=== PATIENT | female | born 1950 | race Caucasian/White ===

== ENCOUNTER 2018-08-01 08:30 | Emergency (ER) | payer OTHER, SELFPAY ==
--- NOTE | 2018-08-01 08:33 | W.ED.GENAD ---
Discharge Plan Disposition Patient Disposition: HOME Condition: Fair Discharge Details Chief Complaint: Nk/Back Pain Clinical Impression: Sciatica Primary Care Provider: Unknown,Unknown ED Provider: Janna Dimas Home Meds and New Rx's Prescriptions: New prednisone 10 mg tablet 10 mg PO DAILY Qty: 30 RF: 0 Continued loratadine [Claritin] 10 mg Tablet 10 mg PO DAILY PRNRF: 0 Discharge Instructions Instructions: Sciatica (ED) Additional Instructions: Encourage hydration. Encourage gentle stretching and frequent ambulation. Please take steroids as prescribed. Please begin naproxen twice daily for the next week. You may augment this with Tylenol as needed for pain. You may try [id number] patches such as Salonpas or Lidoderm patches. Continue with TENS unit as discussed. Please call physical therapy office to schedule appointment, referral is attached. cash management coordinator will contact you with primary care. If you develop fevers/chills, increased pain, altered sensation, change in bowel/bladder habits, weakness or other new/worsneing symptoms please seek care urgently once again. Stand Alone Forms: Physical Therapy Referral Medical Decision Making Patient is a 67 year old female presenting today with c/c of sciatica. States that she first started having symptoms over a month ago. Was seen by PCP who gave her a course of prednisone. States that this was helpful for her pain but that symptoms have since returned. Initially, symptoms were affecting the left side. States that 3 weeks ago she completed a 5 day steroid taper. Initially was pain free. However, symptoms began to reoccur a few days after completion of medication. Again, symptoms were on the left. Recently, however, she began having pain bilaterally. Pain can radiate, particularly with walking, down posterior aspect bilateral legs into min feet. No trauma. No recent illness, denes fevers/chills. No change in urinary or bowel function. Exam is reassuring. She has pain over the SI joints. Neuro exam is intact. No saddle paresthesias. Negative straight leg test. No midline tenderness. Exam and history concistent with sciatica. Patient discussed multitude of options for treatment. She is decided on a short course of prednisone, anti-inflammatory and physical therapy. She reports her primary care has closed down and we will work on having her establish locally. She is given strict return precautions. We discussed activities that she may do at home to help with discomfort. All the questions and concerns were addressed and she is in agreement this plan HPI General Mode of arrival: ambulatory. Date/Time Provider Initiated Documentation: 08/01/18 08:33. Limitations to Documentation: no limitations. Information obtained by: patient, family (brought in by daughter) and RN notes reviewed. History of Present Illness 67 year old F presents to the emergency department with the chief complaint of sciatica, described as moderate, Quality is described as burning, and is localized to the left, right and lower extremity. Patient extremity (BLE). Patient started experiencing this month(s) and it has been constant. Movement improves symptom(s), (reports worse at the end of the day after activity) Immoblization worsens symptoms . Patient notes denies chest pain, cough, fever/chills, headaches, nausea/vomiting, rash, shortness of breath and weakness. Patient did receive the following treatments prior to arrival, other (prednisone) Related Data Home Medications Medication Instructions Recorded Confirmed loratadine [Claritin] 10 mg PO DAILY PRN 08/01/18 08/01/18 prednisone 10 mg PO DAILY #30 tab 08/01/18 Previous Rx's Medication Instructions Recorded prednisone 10 mg PO DAILY #30 tab 08/01/18 Allergies Allergy/AdvReac Type Severity Reaction Status Date / Time No Known Allergies Allergy Unverified 08/01/18 08:40 Review of Systems Constitutional Reports as per HPI, Denies chills, Denies fever(s), Denies headache(s) and Denies weakness ENT Denies headache(s) Cardiovascular Reports as per HPI Respiratory Reports as per HPI and Denies cough Musculoskeletal Reports as per HPI, Reports abnormal gait (reports she develops antalgic gait as pain increases throughout the day), Reports numbness (medial right foot, lateral left ankle) and Denies tingling Integumentary/Breasts Reports as per HPI, Denies rash and Denies wounds Neurologic Reports as per HPI, Reports abnormal gait (reports she develops antalgic gait as pain increases throughout the day), Denies headache(s), Denies focal weakness, Reports numbness (medial right foot, lateral left ankle), Reports radicular pain, Denies tingling, Denies paresthesias and Denies weakness [facility] Social History Smoking/Tobacco Use Status: Current-Occasional Alcohol Intake: current Alcohol Intake frequency: 0-2 drinks per day Drug use: Occasionally Substance use type: marijuana Do you feel safe at home: Yes Do you feel safe in your relationship?: Yes Exam Const General: cooperative, healthy appearing, comfortable, no acute distress, well developed and well groomed Nutritional Appearance: average body habitus and well nourished Orientation: alert and awake Resp Effort & Inspection: normal respiratory effort, able to speak in complete sentences and no respiratory distress Auscultation: clear to auscultation bilaterally, no rales, no rhonchi and no wheezes Cardio Rate: regular rate Rhythm: regular rhythm Heart Sounds: S1 normal and S2 normal Back/Spine/Pelvis Cervical Spine: normal cervical lordosis, cervical ROM normal, No cervical muscular tenderness, No cervical spinal tenderness and No step off deformity Thoracic/Lumbar Spine: thoracic and lumbar spine normal to inspection, thoraco-lumbar ROM normal, straight leg raise negative bilaterally, No paraspinal tenderness, No thoraco-lumbar ROM limited, No thoracic spinal tenderness, No lumbar spinal tenderness and No straight leg raise positive Sacroiliac joints: bilaterally tender to palpation Skin General skin exam: no rashes or lesions noted Lesions: no lesions Rashes: no rashes Trauma: no lacerations or abrasions Neuro General: alert and awake Cognition: normal cognition Speech: speech normal Gait: normal gait Motor: muscle tone normal throughout, strength 5/5 throughout, no movement abnormalities noted and no fasciculations Sensory Exam: no sensory deficits noted (sharp/dull testing intact) DTR's: Rt Patellar: 2+, Lt Patellar: 2+, Rt Ankle: 2+ and Lt Ankle: 2+ Plantar Reflexes: Downgoing: bilateral Extrem Right lower extremity: normal to inspection, full ROM, normal capillary refill and no joint enlargement Left lower extremity: normal to inspection, full ROM, normal capillary refill and no joint enlargement Psych Appearance: grossly normal and well kempt Mental Status: mental status grossly normal Speech and Movement: speech and movement normal
[2018-08-01 08:36] VITALS: BP 179/98; PULSE 82; RESP 18; TEMP 36.7; O2SAT 99
--- NOTE | 2018-08-01 08:43 | ED.GENADUL_ITS ---
Discharge Plan Disposition Patient Disposition: HOME Condition: Fair Discharge Details Chief Complaint: Nk/Back Pain Clinical Impression: Sciatica Primary Care Provider: Unknown,Unknown ED Provider: Janna Dimas Home Meds and New Rx's Prescriptions: New prednisone 10 mg tablet 10 mg PO DAILY Qty: 30 RF: 0 Continued loratadine [Claritin] 10 mg Tablet 10 mg PO DAILY PRNRF: 0 Discharge Instructions Instructions: Sciatica (ED) Additional Instructions: Encourage hydration. Encourage gentle stretching and frequent ambulation. Please take steroids as prescribed. Please begin naproxen twice daily for the next week. You may augment this with Tylenol as needed for pain. You may try [id number] patches such as Salonpas or Lidoderm patches. Continue with TENS unit as discussed. Please call physical therapy office to schedule appointment, referral is attached. organ recovery coordinator will contact you with primary care. If you develop fevers/chills, increased pain, altered sensation, change in bowel/bladder habits, weakness or other new/worsneing symptoms please seek care urgently once again. Stand Alone Forms: Physical Therapy Referral Medical Decision Making Patient is a 67 year old female presenting today with c/c of sciatica. States that she first started having symptoms over a month ago. Was seen by PCP who gave her a course of prednisone. States that this was helpful for her pain but that symptoms have since returned. Initially, symptoms were affecting the left side. States that 3 weeks ago she completed a 5 day steroid taper. Initially was pain free. However, symptoms began to reoccur a few days after completion of medication. Again, symptoms were on the left. Recently, however, she began having pain bilaterally. Pain can radiate, particularly with walking, down posterior aspect bilateral legs into min feet. No trauma. No recent illness, denes fevers/chills. No change in urinary or bowel function. Exam is reassuring. She has pain over the SI joints. Neuro exam is intact. No saddle paresthesias. Negative straight leg test. No midline tenderness. Exam and history concistent with sciatica. Patient discussed multitude of options for treatment. She is decided on a short course of prednisone, anti-inflammatory and physical therapy. She reports her primary care has closed down and we will work on having her establish locally. She is given strict return precautions. We discussed activities that she may do at home to help with discomfort. All the questions and concerns were addressed and she is in agreement this plan HPI General Mode of arrival: ambulatory . Date/Time Provider Initiated Documentation: 08/01/18 08:33 . Limitations to Documentation: no limitations . Information obtained by: patient, family (brought in by daughter) and RN notes reviewed . History of Present Illness 67 year old F presents to the emergency department with the chief complaint of sciatica, described as moderate, Quality is described as burning, and is localized to the left, right and lower extremity. Patient extremity (BLE). Patient started experiencing this month(s) and it has been constant. Movement improves symptom(s), (reports worse at the end of the day after activity) Immoblization worsens symptoms . Patient notes denies chest pain, cough, fever/chills, headaches, nausea/vomiting, rash, shortness of breath and weakness. Patient did receive the following treatments prior to arrival, other (prednisone) Related Data Home Medications Medication Instructions Recorded Confirmed loratadine [Claritin] 10 mg PO DAILY PRN 08/01/18 08/01/18 prednisone 10 mg PO DAILY #30 tab 08/01/18 Previous Rx's Medication Instructions Recorded prednisone 10 mg PO DAILY #30 tab 08/01/18 Allergies Allergy/AdvReac Type Severity Reaction Status Date / Time No Known Allergies Allergy Unverified 08/01/18 08:40 Review of Systems Constitutional Reports as per HPI, Denies chills, Denies fever(s), Denies headache(s) and Denies weakness ENT Denies headache(s) Cardiovascular Reports as per HPI Respiratory Reports as per HPI and Denies cough Musculoskeletal Reports as per HPI, Reports abnormal gait (reports she develops antalgic gait as pain increases throughout the day), Reports numbness (medial right foot, lat eral left ankle) and Denies tingling Integumentary/Breasts Reports as per HPI, Denies rash and Denies wounds Neurologic Reports as per HPI, Reports abnormal gait (reports she develops antalgic gait as pain increases throughout the day), Denies headache(s), Denies focal weakness, Reports numbness (medial right foot, lateral left ankle), Reports radicular pain, Denies tingling, Denies paresthesias and Denies weakness [facility], [facility] Social History Smoking/Tobacco Use Status: Current-Occasional Alcohol Intake: current Alcohol Intake frequency: 0-2 drinks per day Drug use: Occasionally Substance use type: marijuana Do you feel safe at home: Yes Do you feel safe in your relationship?: Yes Exam Const General: cooperative, healthy appearing, comfortable, no acute distress, well developed and well groomed Nutritional Appearance: average body habitus and well nourished Orientation: alert and awake Resp Effort & Inspection: normal respiratory effort, able to speak in complete sentences and no respiratory distress Auscultation: clear to auscultation bilaterally, no rales, no rhonchi and no wheezes Cardio Rate: regular rate Rhythm: regular rhythm Heart Sounds: S1 normal and S2 normal Back/Spine/Pelvis Cervical Spine: normal cervical lordosis, cervical ROM normal, No cervical muscular tenderness, No cervical spinal tenderness and No step off deformity Thoracic/Lumbar Spine: thoracic and lumbar spine normal to inspection, thoraco- lumbar ROM normal, straight leg raise negative bilaterally, No paraspinal tenderness, No thoraco-lumbar ROM limited, No thoracic spinal tenderness, No lumbar spinal tenderness and No straight leg raise positive Sacroiliac joints: bilaterally tender to palpation Skin General skin exam: no rashes or lesions noted Lesions: no lesions Rashes: no rashes Trauma: no lacerations or abrasions Neuro General: alert and awake Cognition: normal cognition Speech: speech normal Gait: normal gait Motor: muscle tone normal throughout, strength 5/5 throughout, no movement abnormalities noted and no fasciculations Sensory Exam: no sensory deficits noted (sharp/dull testing intact) DTR's: Rt Patellar: 2+, Lt Patellar: 2+, Rt Ankle: 2+ and Lt Ankle: 2+ Plantar Reflexes: Downgoing: bilateral Extrem Right lower extremity: normal to inspection, full ROM, normal capillary refill and no joint enlargement Left lower extremity: normal to inspection, full ROM, normal capillary refill and no joint enlargement Psych Appearance: grossly normal and well kempt Mental Status: mental status grossly normal Speech and Movement: speech and movement normal
[2018-08-01] MEDS: Lidocaine 5% Patch 2 PATCH TP (09:18)
--- NOTE | 2018-08-04 16:24 | PDOC.ERCMPRO ---
Care Management Progress Note Shannon referred for PCP follow up. CM faxed referral to [facility] as La was information manager, response faxed back stated Pt was called-she has PCP & did not want to book with [facility]. CM messaged provider to notify.
== END 2018-08-01 09:31 | disposition home or self-care (01) ==
LOC: ER 09:43
PROVIDERS: Emergency Provider Physician Assistant; PCP Nurse Practitioner Adult Health
DX: M54.31 Sciatica, right side (principal); M54.32 Sciatica, left side
CPT/HCPCS: 99283

== ENCOUNTER 2021-05-27 17:58 | Outpatient (REF) | payer MEDICARE, SELFPAY ==
[2021-05-29 12:13] LABS: COVID-19 RT-PCR UVMMC Result Negative (Negative)
== END 2021-05-27 17:59 | disposition home or self-care (01) ==
LOC: LBN 17:58
PROVIDERS: PCP Nurse Practitioner Adult Health; Visit Provider Physician Assistant Medical
DX: J06.9 Acute upper respiratory infection, unspecified (principal); Z20.822 Contact with and (suspected) exposure to COVID-19
CPT/HCPCS: U0003

== ENCOUNTER 2021-08-10 15:50 | Emergency (ER) | payer MEDICARE, SELFPAY ==
[2021-08-10 16:00] VITALS: BP 168/97; PULSE 89; RESP 16; TEMP 36.7; O2SAT 96
--- NOTE | 2021-08-10 16:15 | DI.US_ITS ---
Exam(s) US LOWER EXTREMITY VENOUS LT EXAM: US LOWER EXTREMITY VENOUS LT CLINICAL HISTORY: R/O DVT/ Bakers Cyst TECHNIQUE: Left lower extremity venous ultrasound performed using grayscale, color-flow, and spectra l Doppler analysis. COMPARISON: No exams were available for comparison FINDINGS: The left common femoral, femoral and popliteal veins demonstrate normal compressibility, augmentation , and color Doppler. The posterior tibial veins are patent. The saphenofemoral junction is unremarka ble. There is a 2.1 cm Alba's cyst. The soft tissues are unremarkable. IMPRESSION: 1. No DVT. 2. 2.1 cm Alba's cyst. 3. Results of this exam have been verbally communicated with provider. DATA REPOSITORY:
--- NOTE | 2021-08-10 16:15 | DI.RAD_ITS ---
Exam(s) XR KNEE LT 3V AP,LAT,CALOS EXAM: XR KNEE LT 3V AP,LAT,CALOS CLINICAL HISTORY: Left knee pain. TECHNIQUE: 2D digital imaging was performed of the left knee. Three images were obtained. AP, late ral and PA tunnel views were obtained. COMPARISON: No exams were available for comparison FINDINGS: BONES: No acute fracture is present. No bony destructive lesion is seen. JOINTS: The knee is normally aligned. No joint effusion is seen. SOFT TISSUE: Normal. IMPRESSION: Normal radiographs of the left knee. DATA REPOSITORY: RADIATION DOSE DELIVERED:
--- NOTE | 2021-08-10 16:16 | ED.GENADUL_ITS ---
Discharge Plan Disposition Patient Disposition: HOME Condition: Stable Discharge Details Clinical Impression: Synovial cyst of popliteal space [Alba], left knee Primary Care Provider: Gayle Christian ED Provider: Socorro Yan Home Meds and New Rx's Prescriptions: New tramadol 50 mg tablet 25 mg PO Q8H PRN (Reason: pain) Qty: 7 0RF Rx Instructions: Take with Food, Do not operate heavy machinery while taking this medication. No Action loratadine [Claritin] 10 mg Tablet 10 mg PO DAILY PRN prednisone 10 mg tablet 10 mg PO DAILY Qty: 30 0RF Rx Instructions: 5 tabs days 1&2 4 tabs 3&4 3 tabs 5&6 2 tabs 7&8 1 tab 9&10 sertraline 100 mg tablet 100 mg PO DAILY Label Comments: TAKE 1 TABLET BY MOUTH DAILY simvastatin 20 mg tablet 20 mg PO DAILY Discharge Instructions Instructions: Alba Cyst (ED) Additional Instructions: The knee x-ray is within normal limits at this time. You do have a 2.1 cm Alba's cyst. Wear the hinged knee brace as needed for comfort. Rest ice compression elevation. Please follow-up with orthopedics you are placed on the care management list for follow-up they should call you to make an appointment or you can call them. Please take the medication with food as directed. No operating heavy machinery or driving on this medication. Referrals: Alonso Montaño MD [ [facility] STAFF PHYSICIAN] - 2 weeks (Alba Cyst, left knee, Hinged knee brace, weight bearing as tolerated.) Discharge Data Discharge Date/Time-TO BE ENTERED AT DEPARTURE: 08/10/21 17:19 Medical Decision Making 70 year old female presents to ED with chief c/o left knee pain on and off for the last few weeks. She reports it feels as if the bone is sliding off reports popping and posterior knee pain as she is concerned about a Alba's cyst. Three-view x-ray and ultrasound Doppler rule out DVT/Alba's cyst ordered. 1641: Preliminary result obtained by US tech, 2 cm bakers Cyst noted, Negative for DVT. Patient given tramadol and a hinged knee brace discussed home care follow-up placed on the orthopedic follow-up list she verbalizes understanding. Offered crutches which she has at home. Discussed RICE procedures. This text was generated using Nuance dictation system, please disregard any oddities of phrase or misspellings. Imaging Data Radiologic Study: Imaging: Ultrasound Radiologist's impression: EXAM:? US LOWER EXTREMITY VENOUS LT CLINICAL HISTORY:? R/O DVT/ Bakers Cyst? TECHNIQUE:? Left lower extremity venous ultrasound performed using grayscale, color-flow, and spectral Doppler analysis. COMPARISON:? No exams were available for comparison FINDINGS: The left common femoral, femoral and popliteal veins demonstrate normal compre ssibility, augmentation, and color Doppler. The posterior tibial veins are patent.? The saphenofemoral junction is unremarkable.? There is a 2.1 cm Alba's cyst.? The soft tissues are unremarkable. IMPRESSION: 1. No DVT. 2. 2.1 cm Alba's cyst. 3. Results of this exam have been verbally communicated with provider. Radiologic Study #2: Imaging: X-Ray Radiologist's impression: CLINICAL HISTORY: ? Left knee pain.? TECHNIQUE:? 2D digital imaging was performed of the left knee.? Three images were obtained.? AP, lateral and PA tunnel? views were obtained. COMPARISON:? No exams were available for comparison FINDINGS: BONES:? No acute fracture is present. No bony destructive lesion is seen. JOINTS: The knee is normally aligned. No joint effusion is seen. SOFT TISSUE: Normal. IMPRESSION: Normal radiographs of the left knee. HPI General Mode of arrival: ambulatory . Date/Time Provider Initiated Documentation: 08/10/21 16:02 . Limitations to Documentation: no limitations . Information obtained by: patient, RN notes reviewed and old records reviewed . HPI Narrative: 70 year old female presents to ED with chief c/o left knee pain on and off for the last few weeks. She reports it feels as if the bone is sliding off reports popping and posterior knee pain as she is concerned about a Alba's cyst. She has been using kinesiology tape and taking naproxen with little to no relief. She reports that she is having worsening pain with ambulation increased pain with flexion and extension. Denies any known injury. No other associated symptoms. Related Data Home Medications Medication Instructions Recorded Confirmed loratadine 10 mg tablet (Claritin) 10 mg PO DAILY PRN 08/01/18 08/01/18 prednisone 10 mg tablet 10 mg PO DAILY #30 tabs 08/01/18 sertraline 100 mg tablet 100 mg PO DAILY 08/10/21 08/10/21 simvastatin 20 mg tablet 20 mg PO DAILY 08/10/21 08/10/21 tramadol 50 mg tablet 25 mg PO Q8H PRN pain #7 tabs 08/10/21 Previous Rx's Medication Instructions Recorded prednisone 10 mg tablet 10 mg PO DAILY #30 tabs 08/01/18 tramadol 50 mg tablet 25 mg PO Q8H PRN pain #7 tabs 08/10/21 Allergies Allergy/AdvReac Type Severity Reaction Status Date / Time codeine Allergy Mild Nausea Unverified 08/10/21 16:05 General Stated Complaint: Orthopedic EDGARD: 4 Review of Systems Musculoskeletal Musculoskeletal: Reports as per HPI, Reports abnormal gait, Denies back pain, Denies myalgias, Reports arthralgias, Denies joint swelling, Denies muscle weakness, Denies numbness, Reports stiffness and Denies tingling Neurologic Neurologic: Reports abnormal gait, Denies numbness and Denies tingling PFSH All Active Problems (Updated 08/10/21 @ 17:05 by Socorro Yan NP) Synovial cyst of popliteal space [Alba], left knee (Acute) Social History Smoking/Tobacco Use Status: Never Smoking risk assessment performed?: Yes Alcohol Intake: current Alcohol Intake frequency: 0-2 drinks per day Drug use: Occasionally Substance use type: marijuana Do you feel safe at home: Yes Do you feel safe in your relationship?: Yes Exam Extrem General: normal to inspection, capillary refill normal and calf tenderness Left lower extremity: knee Details: tenderness Location: of the popliteal fossa Course Vital Signs Vital signs: Vital Signs Temperature 36.7 C 08/10/21 16:00 Pulse 89 08/10/21 16:00 Respiratory Rate 16 08/10/21 16:00 Blood Pressure 168/97 H 08/10/21 16:00 Pulse Oximetry 96 08/10/21 16:00 Temperature 36.7 C 08/10/21 16:00 Pulse 89 08/10/21 16:00 Respiratory Rate 16 08/10/21 16:00 Respiratory Effort 08/10/21 16:06 Blood Pressure 168/97 H 08/10/21 16:00 Pulse Oximetry 96 08/10/21 16:00 Pain Level 10 08/10/21 16:00
[2021-08-10] MEDS: traMADol 50 MG TAB 25 MG PO (17:07)
[2021-08-10 17:12] VITALS: BP 132/72; PULSE 65; RESP 16; O2SAT 99
== END 2021-08-10 17:19 | disposition home or self-care (01) ==
PROVIDERS: Emergency Provider Registered Nurse Emergency; PCP Nurse Practitioner Adult Health
DX: M71.22 Synovial cyst of popliteal space [Baker], left knee (principal)
CPT/HCPCS: 73562; 99284; 93971; 99283

== ENCOUNTER → 2021-08-28 13:30 | Outpatient (BNVA) | payer MEDICARE, SELFPAY | PROVIDERS: PCP Nurse Practitioner Adult Health; Referring Provider Nurse Practitioner Adult Health; Visit Provider Student in an Organized Health Care Education/Training Program | DX: M71.22 Synovial cyst of popliteal space [Baker], left knee (principal) | CPT/HCPCS: 20610; 99214; J1040 ==

== ENCOUNTER 2021-10-09 12:07 | Emergency (ER) | payer MEDICARE, SELFPAY ==
[2021-10-09 12:16] VITALS: BP 176/96; PULSE 62; RESP 16; TEMP 37; O2SAT 99
[2021-10-09 12:34] VITALS: RESP 16
--- NOTE | 2021-10-09 14:09 | NUR.NOTE ---
Nursing Note: Patient stated to Access that she had been here for 2 hours, not seen and was leaving and left @ 1407.
== END 2021-10-09 14:07 | disposition left before discharge ==
PROVIDERS: PCP Nurse Practitioner Adult Health
DX: Z53.21 Procedure and treatment not carried out due to patient leaving prior to being seen by health care provider (principal)

== ENCOUNTER → 2023-01-17 08:12 | Outpatient (BNVA) | payer MEDICARE, SELFPAY | PROVIDERS: PCP Nurse Practitioner Adult Health; Referring Provider Nurse Practitioner Adult Health; Visit Provider Physical Therapy Assistant | DX: Z12.11 Encounter for screening for malignant neoplasm of colon (principal) ==

== ENCOUNTER 2023-01-28 08:18 | Day surgery (SDC) | payer MEDICARE, SELFPAY ==
[2023-01-28 08:30] VITALS: BP 124/91; PULSE 64; RESP 16; TEMP 36.3; O2SAT 97
--- NOTE | 2023-01-28 08:47 | COLE_ITS ---
Date of service: 01/28/23 Time of Service: 08:47 Colonoscopy Report Procedure Description: PROCEDURES PERFORMED: 1. Colonoscopy PREOPERATIVE DIAGNOSIS: Screening colonoscopy POSTOPERATIVE DIAGNOSIS: SURGEON: Dez Soliman MD INDICATION for procedure: The patient is a 72-year-old woman due for her first screening colonoscopy. No family history of colon cancer. No symptoms. FINDINGS: No polyps. No inflammation anywhere. Moderate sigmoid diverticulosis but no active diverticulitis and no stricture or fibrosis noted. No significant hemorrhoidal disease. SURVEILLANCE interval/FOLLOW-UP: 10 years SPECIMENS: None EBL: Minimal COMPLICATIONS: None QUALITY of prep: Excellent Procedure in detail: The patient gave written consent and was in agreement with the indications, the potential risks as well as the benefits of the procedure. We went to the endoscopy suite and the patient was laid in the left lateral decubitus position. A timeout was performed and anesthesia was administered which was tolerated well. I started the procedure. Digital rectal and visual examination was performed and grossly within normal limits. A well-lubricated flexible colonoscope was then introduced and passed without any notable difficulty all the way to the cecum identified by the ileocecal valve and the appendiceal orifice. The scope was then slowly withdrawn with the above-noted findings. The patient tolerated the procedure well and was taken to the PACU in h emodynamically stable condition.
[2023-01-28] MEDS: Lactated Ringers 1,000 ML 80 ML IV (08:58)
--- NOTE | 2023-01-28 09:37 | W.ANESPRE ---
General Info Date of Service Date Performed: 01/28/23 Height: 4 ft 11.5 in Weight: 45.359 kg Body Mass Index (BMI): 19.8 Surgical Procedure: Operation Date: 01/28/23 09:50 Proposed Procedure Side Surgeon p Colonoscopy Renan Soliman MD Actual Procedure Side Surgeon p Colonoscopy Not Applicable Renan Soliman MD Meds Allergies and Home Medications Allergies Allergy/AdvReac Type Severity Reaction Status Date / Time codeine Allergy Mild Nausea Unverified 01/28/23 08:40 Home Medication Medication Instructions Recorded loratadine 10 mg tablet (Claritin) 10 mg PO DAILY PRN 08/01/18 sertraline 100 mg tablet 100 mg PO DAILY 08/10/21 simvastatin 20 mg tablet 20 mg PO DAILY 08/10/21 tramadol 50 mg tablet 25 mg (1/2 x 50 mg) PO Q8H PRN 08/10/21 pain #7 tabs ascorbic acid (vitamin C) 1,000 mg 1 g PO DAILY 12/20/22 capsule cholecalciferol (vitamin D3) 50 50 mcg PO DAILY 12/20/22 mcg (2,000 unit) capsule methylphenidate HCl 20 mg tablet 20 mg PO BID 12/20/22 (Ritalin) sumatriptan succinate 6 mg/0.5 mL 6 mg subcut Q1-4H PRN 12/20/22 subcutaneous cartridge (refill) bisacodyl 5 mg tablet,delayed 5 mg PO ONCE #4 tabs 01/17/23 release (Dulcolax (bisacodyl)) polyethylene glycol 3350 17 17 g PO ONCE #238 grams 01/17/23 gram/dose oral powder Current Visit Medications: Current Medications Generic Name Dose Route Start Last Admin Trade Name Freq PRN Reason Stop Dose Admin Ringer's Solution 1,000 mls @ 80 mls/hr 01/28/23 06:00 01/28/23 08:58 IV 02/24/23 23:59 80 mls/hr INFUSION JEIMY Administration IV Miscellaneous Supplies 1 each 01/28/23 06:00 Iv Access IV 02/24/23 23:59 DIRECTED JEIMY Sodium Chloride 0 ml 01/28/23 06:00 Normal Saline Flush 10 Ml Syr IV 02/24/23 23:59 PRN PRN Sodium Chloride 0 ml 01/28/23 06:00 Normal Saline 10 Ml Vial IJ 02/24/23 23:59 DIRECTED PRN Sterile Water 0 ml 01/28/23 06:00 Water,Injection,Sterile 10 Ml Vial IJ 02/24/23 23:59 DIRECTED PRN PFSH Active Problems Active Problems: Problem Status Onset Code Hypertension I10 ADHD F90.9 Medical History Medical History Hx of cyst of breast Depression Surgical History Surgical History History of tubal ligation History of tonsillectomy History of adenoidectomy Tobacco Smoking/Tobacco Use Status: Never Alcohol Alcohol Intake: current Alcohol intake frequency: 0-2 drinks per day Alcohol type: hard liquor Substance Use Substance use: Occasionally Substance use type: marijuana Details: Edibles Vital Signs and Lab Results Vital Signs Most Recent Vital Signs in EMR: Most Recent Vital Signs Temp Pulse Resp BP Pulse Ox 36.3 C L 64 16 124/91 H 97 01/28/23 08:30 01/28/23 08:30 01/28/23 08:30 01/28/23 08:30 01/28/23 08:30 Lab Results Blood Type / Crossmatch: No Data to Display Complete Blood Count: No Data to Display Complete Metabolic Panel: No Data to Display Liver Function Panel: No Data to Display Coagulation Panel: No Data to Display Cardiac Panel: No Data to Display Arterial Blood Gas: No Data to Display Venous Blood Gas: No Data to Display Pancreas Panel: No Data to Display Thyroid Panel: No Data to Display Infectious Disease: No Data to Display Blood Cultures: No Data to Display Toxicology Panel: No Data to Display Anesthesia Assessment and Plan Anesthesia History Personal History: No History of Anesthesia Complications Family History: No Family History of Anesthesia Complications Exercise Tolerance Exercise Tolerance: Metabolic Equivalents>4 Pertinent Negatives Pertinent Negatives: No Symptoms of GERD Cardiac & Pulmonary Exam Cardiac Exam: Normal S1/S2 Heart Sounds Pulmonary Exam: Clear Bilateral Breath Sounds Implantable Cardiac Device Does patient have a Pacemaker or an ICD?: No Airway Exam Known Difficult Airway: No Mallampati Class: 1 Mouth Opening: Normal (> 3cm) Thyromental Distance: Greater than 3 cm Neck Range of Motion: Full ROM Neck Circumference: Normal Teeth Condition: Normal Dentition ASA Classification ASA Score: ASA 2 Emergency Case?: No NPO Status NPO Status: NPO Clears >2 hours, Solids >8 hours Anesthesia Plan Resuscitation Status: Full Code Anesthesia Technique: General Anesthesia Airway Planned: Natural Airway Monitors Used: Standard Monitors
[2023-01-28 09:38] VITALS: BMI 19.8
[2023-01-28 10:10] VITALS: BP 110/71; PULSE 62; RESP 16; TEMP 36.2; O2SAT 96
--- NOTE | 2023-01-28 10:17 | W.PM.DSUDISC ---
Date of service: 01/28/23 Time of Service: 10:17 Discharge Plan Disposition Patient Disposition: Home Condition: Good Discharge Details Attending Provider: Renan Soliman Primary Care Provider: Gayle hCristian Home Meds and New Rx's Prescriptions: No Action bisacodyl [Dulcolax (bisacodyl)] 5 mg tablet,delayed release (DR/EC) 5 mg PO ONCE Qty: 4 0RF Rx Instructions: Take per colonoscopy instructions provided by ordering providers office polyethylene glycol 3350 17 gram/dose powder 17 g PO ONCE Qty: 238 0RF Rx Instructions: Take per colonoscopy instructions provided by ordering providers office ascorbic acid (vitamin C) 1,000 mg capsule 1 g PO DAILY cholecalciferol (vitamin D3) 50 mcg (2,000 unit) capsule 50 mcg PO DAILY methylphenidate HCl [Ritalin] 20 mg tablet 20 mg PO BID sumatriptan succinate 6 mg/0.5 mL cartridge 6 mg subcut Q1-4H PRN Rx Instructions: do not exceed 2 doses in a 24 hour period loratadine [Claritin] 10 mg Tablet 10 mg PO DAILY PRN sertraline 100 mg tablet 100 mg PO DAILY Patient Comments: TAKE 1 TABLET BY MOUTH DAILY simvastatin 20 mg tablet 20 mg PO DAILY tramadol 50 mg tablet 25 mg PO Q8H PRN (Reason: pain) Qty: 7 0RF Rx Instructions: Take with Food, Do not operate heavy machinery while taking this medication. Discharge Instructions Additional Instructions: FINDINGS: No polyps were found. Mild diverticular disease was present. This is extremely common and benign and nothing needs to be done about it. Stand Alone Forms: Colonoscopy Post Instructions Activity:: Activity as Tolerated Diet:: As Tolerated
--- NOTE | 2023-01-28 10:21 | W.ANESPOSTOP ---
Postoperative Evaluation Date, Time and Location Date Performed: 01/28/23 Time Performed: 10:21 Patient Location: Day [facility] Unit Vital Signs Most Recent Imported Vital Signs: Most Recent Vital Signs Temp Pulse Resp BP Pulse Ox 36.3 C L 64 16 124/91 H 97 01/28/23 08:30 01/28/23 08:30 01/28/23 08:30 01/28/23 08:30 01/28/23 08:30 Assessment Mental Status: Awake (Alert & Oriented to Patient Baseline) Airway and Respiratory Function: Patent airway with normal (patient baseline) respiratory exam Cardiovascular Function: Hemodynamically Stable Hydration Status: Adequately Hydrated Nausea & Vomiting: No Nausea or Vomiting Pain: Pt. Denies Any Pain Peripheral Nerve Block: Patient did not receive a nerve block
[2023-01-28 10:33] VITALS: BP 112/61; PULSE 61; RESP 15; TEMP 36.5; O2SAT 96
== END 2023-01-28 10:47 | disposition home or self-care (01) ==
PROVIDERS: PCP Nurse Practitioner Adult Health; Visit Provider Student in an Organized Health Care Education/Training Program
PROC: 0DJD8ZZ Inspection of Lower Intestinal Tract, Via Natural or Artificial Opening Endoscopic (ICD-10-PCS; CPT 45378; principal; 2023-01-28 09:45)
DX: Z12.11 Encounter for screening for malignant neoplasm of colon (principal); K57.30 Diverticulosis of large intestine without perforation or abscess without bleeding
CPT/HCPCS: G0121; 00123; J2001